=== PATIENT | male | born 1955 | race Caucasian/White ===

== ENCOUNTER 2017-01-09 21:53 | Emergency (ER) | payer SELFPAY ==
[~2017-01-09] VITALS: Ht 175.3 cm; Wt 96.6 kg
[2017-01-10 01:40] VITALS: BP 164/85
== END 2017-01-10 01:20 | disposition home or self-care (01) ==
LOC: ED 21:53
DX: S80.02XA Contusion of left knee, initial encounter (principal); W19.XXXA Unspecified fall, initial encounter; Y93.89 Activity, other specified; Y92.89 Other specified places as the place of occurrence of the external cause; Y99.8 Other external cause status; Z88.5 Allergy status to narcotic agent; Z88.6 Allergy status to analgesic agent